=== PATIENT | male | born 1945 | race Caucasian/White ===

== ENCOUNTER 2021-08-07 18:44 | Inpatient (IN) ==
[2021-08-08] MEDS ORDERED: Saline Nasal Spray 44 ML BOTTLE NS PRN (00:25)
[2021-08-08] MEDS ORDERED: MOM Conc 10 ML UD.LIQ PO PRN (00:25)
[2021-08-08] MEDS ORDERED: Melatonin 3 MG TABLET PO PRN (00:25)
[2021-08-08] MEDS ORDERED: NON-FORMULARY MEDICATION 1 EACH EACH (Sildenafil Citrate [Viagra] 100 MG Tablet) PO PRN (00:25)
[2021-08-08] MEDS ORDERED: Benzonatate 100 MG CAPSULE PO PRN (00:25)
[2021-08-08 08:35] LABS: Basophils # 0.1 K/mcL (0.0-0.2); Eosinophils # 0.1 K/mcL (0.0-0.6); Eosinophils % 1.7 %; Hematocrit 37.9 % (37.5-50.1); Hemoglobin 12.2 g/dL (12.9-16.9); Immature Granulocytes % 0.9 % (0-4); Lymphocytes # 1.8 K/mcL (0.6-4.6); Mean Corpuscular HGB Conc 32.2 g/dL (31.6-35.5); Mean Corpuscular Hemoglobin 29.9 pg (28.0-33.3); Mean Corpuscular Volume 92.9 fL (83.0-100.0); Mean Platelet Volume 10.1 fL (9.4-12.4); Monocytes # 0.8 K/mcL (0.0-1.3); Monocytes % 11.9 %; Neutrophils # 4.1 K/mcL (1.6-8.9); Platelet Count 278 K/mcL (140-400); Red Blood Count 4.08 M/mcL (4.19-5.50); Red Cell Distribution Width 13.7 % (11.5-14.5); Segmented Neutrophils % 58.5 %
[2021-08-08 09:06] LABS: BUN/Creatinine Ratio 18 (6-26); Blood Urea Nitrogen 13 mg/dL (8-23); Calcium 8.3 mg/dL (8.6-10.3); Carbon Dioxide 35 mEq/L (23-29); Chloride 95 mEq/L (98-107); Glucose 159 mg/dL (70-105); Osmolality,Calculated 287 (280-300); Potassium 3.8 mEq/L (3.5-5.1); Sodium 137 mEq/L (136-145); eGFR For African Americans > 60 (> 60); eGFR For Non-African Americans > 60 (> 60)
[2021-08-08] MEDS: *HR* Metformin 500 MG TABLET PO SCH ×2 (09:42→16:23)
[2021-08-08] MEDS: GlipiZIDE 5 MG TABLET PO SCH ×2 (09:42→20:20)
[2021-08-08] MEDS: Pyridoxine (B-6) 50 MG TABLET PO SCH (09:43)
[2021-08-08] MEDS: Gabapentin 300 MG CAPSULE PO SCH ×3 (09:43→20:20)
[2021-08-08] MEDS: Metoprolol XL (24 HR) Succ 50 MG TAB.ER.24H PO SCH (09:43)
[2021-08-08] MEDS: Aspirin Enteric Coated 81 MG Tablet PO SCH (09:44)
[2021-08-08] MEDS: Cyanocobalamin (B-12) 1,000 MCG TABLET PO SCH (09:45)
[2021-08-08] MEDS: Carbidopa/Levodopa 25/100 TABLET PO SCH ×2 (09:45→11:58)
[2021-08-08] MEDS: Furosemide 20 MG TABLET PO SCH (09:45)
[2021-08-08] MEDS: Apixaban 5 MG TABLET PO SCH ×2 (09:45→20:20)
[2021-08-08] MEDS: amLODIPine 5 MG TABLET PO SCH (09:46)
[2021-08-08] MEDS: Budesonide/Formoterol 160/4.5 1 PUFF INH IH SCH ×2 (09:49→22:02)
[2021-08-08] MEDS ORDERED: Dextrose Gel 15 GM/37.5 ML TUBE PO PRN ×2 (12:12)
[2021-08-08] MEDS ORDERED: *HR* Dextrose 50 % in Water (Syg) 50 ML SYRINGE IVP PRN (12:12)
[2021-08-08] MEDS ORDERED: D5% in Water 1,000 ML IVC PRN (12:12)
[2021-08-08] MEDS: Insulin LISPRO 300 UNITS/3 ML VIAL SUBQ SCH (16:25)
[2021-08-08] MEDS: Nystatin POWDER 30 GM BOTTLE TP SCH (20:31)
[2021-08-08] MEDS: Artificial Tears SOLN 15 ML BOTTLE BOTH EYES SCH (20:31)
[2021-08-09] MEDS: Insulin LISPRO 300 UNITS/3 ML VIAL SUBQ SCH ×3 (08:17→16:27)
[2021-08-09] MEDS: *HR* Metformin 500 MG TABLET PO SCH ×2 (08:17→17:31)
[2021-08-09] MEDS: Apixaban 5 MG TABLET PO SCH ×2 (08:17→20:30)
[2021-08-09] MEDS: Carbidopa/Levodopa 25/100 TABLET PO SCH ×2 (08:17→12:29)
[2021-08-09] MEDS: Aspirin Enteric Coated 81 MG Tablet PO SCH (08:17)
[2021-08-09] MEDS: amLODIPine 5 MG TABLET PO SCH (08:18)
[2021-08-09] MEDS: Furosemide 20 MG TABLET PO SCH (08:18)
[2021-08-09] MEDS: Pyridoxine (B-6) 50 MG TABLET PO SCH (08:18)
[2021-08-09] MEDS: Cyanocobalamin (B-12) 1,000 MCG TABLET PO SCH (08:18)
[2021-08-09] MEDS: Metoprolol XL (24 HR) Succ 50 MG TAB.ER.24H PO SCH (08:18)
[2021-08-09] MEDS: Nystatin POWDER 30 GM BOTTLE TP SCH ×3 (08:18→20:33)
[2021-08-09] MEDS: GlipiZIDE 5 MG TABLET PO SCH ×2 (08:18→20:30)
[2021-08-09] MEDS: Gabapentin 300 MG CAPSULE PO SCH ×3 (08:18→20:30)
[2021-08-09] MEDS: Budesonide/Formoterol 160/4.5 1 PUFF INH IH SCH ×2 (10:08→21:25)
[2021-08-09] MEDS: Artificial Tears SOLN 15 ML BOTTLE BOTH EYES SCH (20:31)
[2021-08-10] MEDS: Insulin LISPRO 300 UNITS/3 ML VIAL SUBQ SCH ×3 (08:46→16:51)
[2021-08-10] MEDS: Pyridoxine (B-6) 50 MG TABLET PO SCH (08:46)
[2021-08-10] MEDS: Gabapentin 300 MG CAPSULE PO SCH ×3 (08:46→19:54)
[2021-08-10] MEDS: GlipiZIDE 5 MG TABLET PO SCH ×2 (08:46→19:54)
[2021-08-10] MEDS: Aspirin Enteric Coated 81 MG Tablet PO SCH (08:47)
[2021-08-10] MEDS: Metoprolol XL (24 HR) Succ 50 MG TAB.ER.24H PO SCH (08:48)
[2021-08-10] MEDS: Carbidopa/Levodopa 25/100 TABLET PO SCH ×2 (08:48→11:59)
[2021-08-10] MEDS: *HR* Metformin 500 MG TABLET PO SCH ×2 (08:48→16:54)
[2021-08-10] MEDS: Cyanocobalamin (B-12) 1,000 MCG TABLET PO SCH (08:49)
[2021-08-10] MEDS: amLODIPine 5 MG TABLET PO SCH (08:49)
[2021-08-10] MEDS: Furosemide 20 MG TABLET PO SCH (08:49)
[2021-08-10] MEDS: Apixaban 5 MG TABLET PO SCH ×2 (08:49→19:54)
[2021-08-10] MEDS: Nystatin POWDER 30 GM BOTTLE TP SCH ×3 (08:51→19:55)
[2021-08-10] MEDS: Budesonide/Formoterol 160/4.5 1 PUFF INH IH SCH (10:15)
[2021-08-10] MEDS: Artificial Tears SOLN 15 ML BOTTLE BOTH EYES SCH (19:55)
[2021-08-11] MEDS: Budesonide/Formoterol 160/4.5 1 PUFF INH IH SCH ×3 (02:18→21:58)
[2021-08-11] MEDS: Aspirin Enteric Coated 81 MG Tablet PO SCH (08:05)
[2021-08-11] MEDS: Pyridoxine (B-6) 50 MG TABLET PO SCH (08:05)
[2021-08-11] MEDS: GlipiZIDE 5 MG TABLET PO SCH ×2 (08:05→21:17)
[2021-08-11] MEDS: Apixaban 5 MG TABLET PO SCH ×2 (08:05→21:14)
[2021-08-11] MEDS: Metoprolol XL (24 HR) Succ 50 MG TAB.ER.24H PO SCH (08:05)
[2021-08-11] MEDS: amLODIPine 5 MG TABLET PO SCH (08:05)
[2021-08-11] MEDS: Carbidopa/Levodopa 25/100 TABLET PO SCH ×2 (08:06→13:38)
[2021-08-11] MEDS: Cyanocobalamin (B-12) 1,000 MCG TABLET PO SCH (08:06)
[2021-08-11] MEDS: *HR* Metformin 500 MG TABLET PO SCH ×2 (08:06→18:06)
[2021-08-11] MEDS: Gabapentin 300 MG CAPSULE PO SCH ×3 (08:06→21:08)
[2021-08-11] MEDS: Furosemide 20 MG TABLET PO SCH (08:06)
[2021-08-11] MEDS: Insulin LISPRO 300 UNITS/3 ML VIAL SUBQ SCH ×3 (08:07→18:09)
[2021-08-11] MEDS: Nystatin POWDER 30 GM BOTTLE TP SCH ×3 (08:11→21:20)
[2021-08-11] MEDS: Artificial Tears SOLN 15 ML BOTTLE BOTH EYES SCH (21:14)
[2021-08-12] MEDS: Insulin LISPRO 300 UNITS/3 ML VIAL SUBQ SCH ×3 (07:50→16:06)
[2021-08-12] MEDS: Budesonide/Formoterol 160/4.5 1 PUFF INH IH SCH ×2 (08:27→22:00)
[2021-08-12] MEDS: Gabapentin 300 MG CAPSULE PO SCH ×3 (08:46→20:49)
[2021-08-12] MEDS: GlipiZIDE 5 MG TABLET PO SCH ×2 (08:46→20:50)
[2021-08-12] MEDS: Carbidopa/Levodopa 25/100 TABLET PO SCH ×2 (08:46→12:24)
[2021-08-12] MEDS: Metoprolol XL (24 HR) Succ 50 MG TAB.ER.24H PO SCH (08:46)
[2021-08-12] MEDS: Cyanocobalamin (B-12) 1,000 MCG TABLET PO SCH (08:46)
[2021-08-12] MEDS: Pyridoxine (B-6) 50 MG TABLET PO SCH (08:46)
[2021-08-12] MEDS: Furosemide 20 MG TABLET PO SCH (08:47)
[2021-08-12] MEDS: Aspirin Enteric Coated 81 MG Tablet PO SCH (08:47)
[2021-08-12] MEDS: *HR* Metformin 500 MG TABLET PO SCH ×2 (08:47→16:21)
[2021-08-12] MEDS: amLODIPine 5 MG TABLET PO SCH (08:47)
[2021-08-12] MEDS: Apixaban 5 MG TABLET PO SCH ×2 (08:47→20:49)
[2021-08-12] MEDS: Nystatin POWDER 30 GM BOTTLE TP SCH ×3 (08:48→22:41)
[2021-08-12] MEDS: Artificial Tears SOLN 15 ML BOTTLE BOTH EYES SCH (20:50)
[2021-08-13] MEDS: *HR* Metformin 500 MG TABLET PO SCH ×2 (08:42→17:17)
[2021-08-13] MEDS: Metoprolol XL (24 HR) Succ 50 MG TAB.ER.24H PO SCH (08:42)
[2021-08-13] MEDS: Carbidopa/Levodopa 25/100 TABLET PO SCH ×2 (08:42→14:25)
[2021-08-13] MEDS: Aspirin Enteric Coated 81 MG Tablet PO SCH (08:42)
[2021-08-13] MEDS: Apixaban 5 MG TABLET PO SCH ×2 (08:42→20:36)
[2021-08-13] MEDS: GlipiZIDE 5 MG TABLET PO SCH ×2 (08:43→20:36)
[2021-08-13] MEDS: Furosemide 20 MG TABLET PO SCH (08:44)
[2021-08-13] MEDS: Cyanocobalamin (B-12) 1,000 MCG TABLET PO SCH (08:44)
[2021-08-13] MEDS: Gabapentin 300 MG CAPSULE PO SCH ×3 (08:44→20:36)
[2021-08-13] MEDS: Pyridoxine (B-6) 50 MG TABLET PO SCH (08:44)
[2021-08-13] MEDS: amLODIPine 5 MG TABLET PO SCH (08:44)
[2021-08-13] MEDS: Insulin LISPRO 300 UNITS/3 ML VIAL SUBQ SCH ×3 (08:45→17:17)
[2021-08-13] MEDS: Nystatin POWDER 30 GM BOTTLE TP SCH ×3 (08:45→20:37)
[2021-08-13] MEDS: Budesonide/Formoterol 160/4.5 1 PUFF INH IH SCH ×2 (11:08→21:25)
[2021-08-13] MEDS: Artificial Tears SOLN 15 ML BOTTLE BOTH EYES SCH (20:37)
[2021-08-14 07:50] LABS: Basophils # 0.1 K/mcL (0.0-0.2); Eosinophils # 0.2 K/mcL (0.0-0.6); Eosinophils % 2.8 %; Hematocrit 37.4 % (37.5-50.1); Hemoglobin 12.1 g/dL (12.9-16.9); Immature Granulocytes % 0.7 % (0-4); Lymphocytes # 1.8 K/mcL (0.6-4.6); Lymphocytes % 29.2 %; Mean Corpuscular HGB Conc 32.4 g/dL (31.6-35.5); Mean Corpuscular Hemoglobin 30.3 pg (28.0-33.3); Mean Corpuscular Volume 93.7 fL (83.0-100.0); Mean Platelet Volume 9.8 fL (9.4-12.4); Monocytes # 0.6 K/mcL (0.0-1.3); Monocytes % 10.5 %; Neutrophils # 3.4 K/mcL (1.6-8.9); Platelet Count 186 K/mcL (140-400); Red Blood Count 3.99 M/mcL (4.19-5.50); Segmented Neutrophils % 55.8 %; White Blood Count 6.1 K/mcL (4.3-11.1)
[2021-08-14 08:06] LABS: BUN/Creatinine Ratio 18 (6-26); Blood Urea Nitrogen 13 mg/dL (8-23); Calcium 8.1 mg/dL (8.6-10.3); Carbon Dioxide 32 mEq/L (23-29); Chloride 100 mEq/L (98-107); Glucose 145 mg/dL (70-105); Osmolality,Calculated 291 (280-300); Potassium 4.1 mEq/L (3.5-5.1); Sodium 139 mEq/L (136-145); eGFR For African Americans > 60 (> 60); eGFR For Non-African Americans > 60 (> 60)
[2021-08-14] MEDS: GlipiZIDE 5 MG TABLET PO SCH ×2 (09:05→20:24)
[2021-08-14] MEDS: Apixaban 5 MG TABLET PO SCH ×2 (09:05→20:24)
[2021-08-14] MEDS: Furosemide 20 MG TABLET PO SCH (09:05)
[2021-08-14] MEDS: amLODIPine 5 MG TABLET PO SCH (09:05)
[2021-08-14] MEDS: Aspirin Enteric Coated 81 MG Tablet PO SCH (09:06)
[2021-08-14] MEDS: Cyanocobalamin (B-12) 1,000 MCG TABLET PO SCH (09:06)
[2021-08-14] MEDS: Carbidopa/Levodopa 25/100 TABLET PO SCH ×2 (09:06→12:29)
[2021-08-14] MEDS: Metoprolol XL (24 HR) Succ 50 MG TAB.ER.24H PO SCH (09:06)
[2021-08-14] MEDS: Pyridoxine (B-6) 50 MG TABLET PO SCH (09:06)
[2021-08-14] MEDS: Gabapentin 300 MG CAPSULE PO SCH ×3 (09:06→20:24)
[2021-08-14] MEDS: *HR* Metformin 500 MG TABLET PO SCH ×2 (09:06→17:01)
[2021-08-14] MEDS: Insulin LISPRO 300 UNITS/3 ML VIAL SUBQ SCH ×3 (09:13→17:01)
[2021-08-14] MEDS: Nystatin POWDER 30 GM BOTTLE TP SCH ×3 (09:49→20:24)
[2021-08-14] MEDS: Budesonide/Formoterol 160/4.5 1 PUFF INH IH SCH ×2 (11:06→22:31)
[2021-08-14] MEDS: Artificial Tears SOLN 15 ML BOTTLE BOTH EYES SCH (20:24)
[2021-08-15] MEDS: Gabapentin 300 MG CAPSULE PO SCH ×3 (07:54→21:54)
[2021-08-15] MEDS: Apixaban 5 MG TABLET PO SCH ×2 (07:54→21:55)
[2021-08-15] MEDS: *HR* Metformin 500 MG TABLET PO SCH ×2 (07:54→16:07)
[2021-08-15] MEDS: GlipiZIDE 5 MG TABLET PO SCH ×2 (07:54→21:55)
[2021-08-15] MEDS: Pyridoxine (B-6) 50 MG TABLET PO SCH (07:55)
[2021-08-15] MEDS: Furosemide 20 MG TABLET PO SCH (07:55)
[2021-08-15] MEDS: Carbidopa/Levodopa 25/100 TABLET PO SCH ×2 (07:55→11:59)
[2021-08-15] MEDS: Cyanocobalamin (B-12) 1,000 MCG TABLET PO SCH (07:55)
[2021-08-15] MEDS: Aspirin Enteric Coated 81 MG Tablet PO SCH (07:55)
[2021-08-15] MEDS: amLODIPine 5 MG TABLET PO SCH (07:55)
[2021-08-15] MEDS: Insulin LISPRO 300 UNITS/3 ML VIAL SUBQ SCH ×3 (08:20→16:50)
[2021-08-15] MEDS: Nystatin POWDER 30 GM BOTTLE TP SCH ×3 (08:23→21:56)
[2021-08-15] MEDS: Metoprolol XL (24 HR) Succ 50 MG TAB.ER.24H PO SCH (08:23)
[2021-08-15] MEDS: Budesonide/Formoterol 160/4.5 1 PUFF INH IH SCH (10:46)
[2021-08-15 15:56] LABS: Bilirubin,Urine Negative (Negative); Blood,Urine Negative (Negative); Clarity,Urine Clear (Clear); Color,Urine Yellow (Yellow); Glucose,Urine (UA) Normal (Normal); Ketones,Urine Negative (Negative); Leukocyte Esterase,Urine Negative (Negative); Nitrite,Urine Negative (Negative); PH,Urine 6.5 pH Units (5.0-8.0); Protein,Urine Negative (Neg-Trace); Urobilinogen,Urine Normal (Normal)
[2021-08-15] MEDS: Artificial Tears SOLN 15 ML BOTTLE BOTH EYES SCH (21:57)
[2021-08-16] MEDS: Budesonide/Formoterol 160/4.5 1 PUFF INH IH SCH ×3 (00:07→21:59)
[2021-08-16] MEDS: Insulin LISPRO 300 UNITS/3 ML VIAL SUBQ SCH ×3 (09:30→16:28)
[2021-08-16] MEDS: Cyanocobalamin (B-12) 1,000 MCG TABLET PO SCH (09:43)
[2021-08-16] MEDS: amLODIPine 5 MG TABLET PO SCH (09:44)
[2021-08-16] MEDS: Pyridoxine (B-6) 50 MG TABLET PO SCH (09:45)
[2021-08-16] MEDS: Furosemide 20 MG TABLET PO SCH (09:45)
[2021-08-16] MEDS: Gabapentin 300 MG CAPSULE PO SCH ×3 (09:45→20:32)
[2021-08-16] MEDS: Apixaban 5 MG TABLET PO SCH ×2 (09:45→20:32)
[2021-08-16] MEDS: Metoprolol XL (24 HR) Succ 50 MG TAB.ER.24H PO SCH (09:45)
[2021-08-16] MEDS: Aspirin Enteric Coated 81 MG Tablet PO SCH (09:45)
[2021-08-16] MEDS: *HR* Metformin 500 MG TABLET PO SCH ×2 (09:45→17:04)
[2021-08-16] MEDS: GlipiZIDE 5 MG TABLET PO SCH ×2 (09:46→20:32)
[2021-08-16] MEDS: Carbidopa/Levodopa 25/100 TABLET PO SCH ×2 (09:46→12:04)
[2021-08-16] MEDS: Nystatin POWDER 30 GM BOTTLE TP SCH ×3 (09:47→20:32)
[2021-08-16] MEDS: Artificial Tears SOLN 15 ML BOTTLE BOTH EYES SCH (20:32)
[2021-08-17] MEDS: Budesonide/Formoterol 160/4.5 1 PUFF INH IH SCH ×2 (07:50→22:34)
[2021-08-17] MEDS: amLODIPine 5 MG TABLET PO SCH (08:57)
[2021-08-17] MEDS: Carbidopa/Levodopa 25/100 TABLET PO SCH ×2 (08:57→12:17)
[2021-08-17] MEDS: Pyridoxine (B-6) 50 MG TABLET PO SCH (08:57)
[2021-08-17] MEDS: Aspirin Enteric Coated 81 MG Tablet PO SCH (08:57)
[2021-08-17] MEDS: *HR* Metformin 500 MG TABLET PO SCH ×2 (08:57→16:15)
[2021-08-17] MEDS: Metoprolol XL (24 HR) Succ 50 MG TAB.ER.24H PO SCH (08:58)
[2021-08-17] MEDS: Furosemide 20 MG TABLET PO SCH (08:58)
[2021-08-17] MEDS: Apixaban 5 MG TABLET PO SCH ×2 (08:58→21:36)
[2021-08-17] MEDS: GlipiZIDE 5 MG TABLET PO SCH ×2 (08:58→21:36)
[2021-08-17] MEDS: Cyanocobalamin (B-12) 1,000 MCG TABLET PO SCH (08:58)
[2021-08-17] MEDS: Gabapentin 300 MG CAPSULE PO SCH ×3 (08:58→21:36)
[2021-08-17] MEDS: Insulin LISPRO 300 UNITS/3 ML VIAL SUBQ SCH ×3 (08:59→16:29)
[2021-08-17] MEDS: Nystatin POWDER 30 GM BOTTLE TP SCH ×3 (09:01→21:36)
[2021-08-17] MEDS: Artificial Tears SOLN 15 ML BOTTLE BOTH EYES SCH (21:34)
[2021-08-18] MEDS: Budesonide/Formoterol 160/4.5 1 PUFF INH IH SCH ×2 (08:15→21:48)
[2021-08-18 08:30] LABS: Basophils # 0.1 K/mcL (0.0-0.2); Basophils % 0.6 %; Eosinophils # 0.2 K/mcL (0.0-0.6); Eosinophils % 2.4 %; Hematocrit 39.7 % (37.5-50.1); Hemoglobin 12.6 g/dL (12.9-16.9); Immature Granulocytes % 0.4 % (0-4); Lymphocytes # 2.5 K/mcL (0.6-4.6); Lymphocytes % 32.2 %; Mean Corpuscular HGB Conc 31.7 g/dL (31.6-35.5); Mean Corpuscular Volume 94.5 fL (83.0-100.0); Mean Platelet Volume 9.6 fL (9.4-12.4); Monocytes # 0.8 K/mcL (0.0-1.3); Neutrophils # 4.3 K/mcL (1.6-8.9); Platelet Count 173 K/mcL (140-400); Red Cell Distribution Width 14.1 % (11.5-14.5); Segmented Neutrophils % 54.4 %; White Blood Count 7.8 K/mcL (4.3-11.1)
[2021-08-18 08:45] LABS: BUN/Creatinine Ratio 20 (6-26); Blood Urea Nitrogen 15 mg/dL (8-23); Calcium 8.5 mg/dL (8.6-10.3); Carbon Dioxide 32 mEq/L (23-29); Chloride 100 mEq/L (98-107); Glucose 125 mg/dL (70-105); Osmolality,Calculated 290 (280-300); Potassium 4.3 mEq/L (3.5-5.1); Sodium 139 mEq/L (136-145); eGFR For African Americans > 60 (> 60); eGFR For Non-African Americans > 60 (> 60)
[2021-08-18] MEDS: Metoprolol XL (24 HR) Succ 50 MG TAB.ER.24H PO SCH (10:00)
[2021-08-18] MEDS: Pyridoxine (B-6) 50 MG TABLET PO SCH (10:00)
[2021-08-18] MEDS: Insulin LISPRO 300 UNITS/3 ML VIAL SUBQ SCH ×3 (10:00→16:31)
[2021-08-18] MEDS: Aspirin Enteric Coated 81 MG Tablet PO SCH (10:00)
[2021-08-18] MEDS: Cyanocobalamin (B-12) 1,000 MCG TABLET PO SCH (10:00)
[2021-08-18] MEDS: *HR* Metformin 500 MG TABLET PO SCH ×2 (10:00→16:37)
[2021-08-18] MEDS: amLODIPine 5 MG TABLET PO SCH (10:01)
[2021-08-18] MEDS: GlipiZIDE 5 MG TABLET PO SCH ×2 (10:01→20:57)
[2021-08-18] MEDS: Gabapentin 300 MG CAPSULE PO SCH ×3 (10:01→20:57)
[2021-08-18] MEDS: Furosemide 20 MG TABLET PO SCH (10:01)
[2021-08-18] MEDS: Apixaban 5 MG TABLET PO SCH ×2 (10:01→20:57)
[2021-08-18] MEDS: Carbidopa/Levodopa 25/100 TABLET PO SCH ×2 (10:01→12:07)
[2021-08-18] MEDS: Nystatin POWDER 30 GM BOTTLE TP SCH ×3 (10:09→20:57)
[2021-08-18] MEDS: Artificial Tears SOLN 15 ML BOTTLE BOTH EYES SCH (20:57)
[2021-08-19] MEDS: Insulin LISPRO 300 UNITS/3 ML VIAL SUBQ SCH ×3 (09:28→16:17)
[2021-08-19] MEDS: Carbidopa/Levodopa 25/100 TABLET PO SCH ×2 (09:45→14:07)
[2021-08-19] MEDS: Apixaban 5 MG TABLET PO SCH ×2 (09:45→19:44)
[2021-08-19] MEDS: Gabapentin 300 MG CAPSULE PO SCH ×3 (09:45→19:44)
[2021-08-19] MEDS: Cyanocobalamin (B-12) 1,000 MCG TABLET PO SCH (09:45)
[2021-08-19] MEDS: GlipiZIDE 5 MG TABLET PO SCH ×2 (09:45→19:44)
[2021-08-19] MEDS: Furosemide 20 MG TABLET PO SCH (09:45)
[2021-08-19] MEDS: Aspirin Enteric Coated 81 MG Tablet PO SCH (09:45)
[2021-08-19] MEDS: Metoprolol XL (24 HR) Succ 50 MG TAB.ER.24H PO SCH (09:45)
[2021-08-19] MEDS: *HR* Metformin 500 MG TABLET PO SCH ×2 (09:45→16:31)
[2021-08-19] MEDS: Pyridoxine (B-6) 50 MG TABLET PO SCH (09:46)
[2021-08-19] MEDS: Nystatin POWDER 30 GM BOTTLE TP SCH ×3 (09:46→19:45)
[2021-08-19] MEDS: amLODIPine 5 MG TABLET PO SCH (09:46)
[2021-08-19] MEDS: Budesonide/Formoterol 160/4.5 1 PUFF INH IH SCH ×2 (10:02→21:48)
[2021-08-19] MEDS: Artificial Tears SOLN 15 ML BOTTLE BOTH EYES SCH (19:45)
[2021-08-20] MEDS: Insulin LISPRO 300 UNITS/3 ML VIAL SUBQ SCH ×3 (07:25→16:15)
[2021-08-20] MEDS: Gabapentin 300 MG CAPSULE PO SCH ×3 (09:16→19:53)
[2021-08-20] MEDS: Apixaban 5 MG TABLET PO SCH ×2 (09:16→19:53)
[2021-08-20] MEDS: GlipiZIDE 5 MG TABLET PO SCH ×2 (09:16→19:58)
[2021-08-20] MEDS: Aspirin Enteric Coated 81 MG Tablet PO SCH (09:16)
[2021-08-20] MEDS: Pyridoxine (B-6) 50 MG TABLET PO SCH (09:17)
[2021-08-20] MEDS: Cyanocobalamin (B-12) 1,000 MCG TABLET PO SCH (09:17)
[2021-08-20] MEDS: *HR* Metformin 500 MG TABLET PO SCH ×2 (09:17→16:27)
[2021-08-20] MEDS: Carbidopa/Levodopa 25/100 TABLET PO SCH ×2 (09:17→12:35)
[2021-08-20] MEDS: amLODIPine 5 MG TABLET PO SCH (09:17)
[2021-08-20] MEDS: Furosemide 20 MG TABLET PO SCH (09:17)
[2021-08-20] MEDS: Metoprolol XL (24 HR) Succ 50 MG TAB.ER.24H PO SCH (09:17)
[2021-08-20] MEDS: Nystatin POWDER 30 GM BOTTLE TP SCH ×3 (09:18→20:03)
[2021-08-20] MEDS: Budesonide/Formoterol 160/4.5 1 PUFF INH IH SCH ×2 (10:51→22:22)
[2021-08-20] MEDS: Artificial Tears SOLN 15 ML BOTTLE BOTH EYES SCH (20:03)
[2021-08-21] MEDS: Pyridoxine (B-6) 50 MG TABLET PO SCH (07:56)
[2021-08-21] MEDS: Carbidopa/Levodopa 25/100 TABLET PO SCH ×2 (07:56→12:44)
[2021-08-21] MEDS: *HR* Metformin 500 MG TABLET PO SCH ×2 (07:56→17:43)
[2021-08-21] MEDS: Gabapentin 300 MG CAPSULE PO SCH ×3 (07:56→19:58)
[2021-08-21] MEDS: Aspirin Enteric Coated 81 MG Tablet PO SCH (07:56)
[2021-08-21] MEDS: Cyanocobalamin (B-12) 1,000 MCG TABLET PO SCH (07:56)
[2021-08-21] MEDS: Apixaban 5 MG TABLET PO SCH ×2 (07:56→19:59)
[2021-08-21] MEDS: Metoprolol XL (24 HR) Succ 50 MG TAB.ER.24H PO SCH (07:56)
[2021-08-21] MEDS: amLODIPine 5 MG TABLET PO SCH (07:56)
[2021-08-21] MEDS: Insulin LISPRO 300 UNITS/3 ML VIAL SUBQ SCH ×3 (07:57→17:43)
[2021-08-21] MEDS: Nystatin POWDER 30 GM BOTTLE TP SCH ×3 (07:58→19:59)
[2021-08-21] MEDS: Budesonide/Formoterol 160/4.5 1 PUFF INH IH SCH ×2 (09:01→21:31)
[2021-08-21] MEDS: Furosemide 20 MG TABLET PO SCH (09:37)
[2021-08-21] MEDS: GlipiZIDE 5 MG TABLET PO SCH ×2 (09:37→19:59)
[2021-08-21] MEDS: Artificial Tears SOLN 15 ML BOTTLE BOTH EYES SCH (19:59)
[2021-08-22] MEDS: Insulin LISPRO 300 UNITS/3 ML VIAL SUBQ SCH ×3 (07:54→16:36)
[2021-08-22] MEDS: *HR* Metformin 500 MG TABLET PO SCH ×2 (07:54→16:36)
[2021-08-22] MEDS: Carbidopa/Levodopa 25/100 TABLET PO SCH ×2 (07:54→11:58)
[2021-08-22] MEDS: Nystatin POWDER 30 GM BOTTLE TP SCH ×3 (07:56→20:09)
[2021-08-22] MEDS: Gabapentin 300 MG CAPSULE PO SCH ×3 (09:20→20:09)
[2021-08-22] MEDS: Furosemide 20 MG TABLET PO SCH (09:20)
[2021-08-22] MEDS: Pyridoxine (B-6) 50 MG TABLET PO SCH (09:20)
[2021-08-22] MEDS: amLODIPine 5 MG TABLET PO SCH (09:20)
[2021-08-22] MEDS: Apixaban 5 MG TABLET PO SCH ×2 (09:21→20:08)
[2021-08-22] MEDS: GlipiZIDE 5 MG TABLET PO SCH ×2 (09:21→20:28)
[2021-08-22] MEDS: Metoprolol XL (24 HR) Succ 50 MG TAB.ER.24H PO SCH (09:21)
[2021-08-22] MEDS: Cyanocobalamin (B-12) 1,000 MCG TABLET PO SCH (09:21)
[2021-08-22] MEDS: Aspirin Enteric Coated 81 MG Tablet PO SCH (09:21)
[2021-08-22] MEDS: Budesonide/Formoterol 160/4.5 1 PUFF INH IH SCH ×2 (09:24→22:12)
[2021-08-22] MEDS: Artificial Tears SOLN 15 ML BOTTLE BOTH EYES SCH (20:10)
[2021-08-23] MEDS: Insulin LISPRO 300 UNITS/3 ML VIAL SUBQ SCH ×3 (08:33→17:35)
[2021-08-23] MEDS: Metoprolol XL (24 HR) Succ 50 MG TAB.ER.24H PO SCH (09:42)
[2021-08-23] MEDS: *HR* Metformin 500 MG TABLET PO SCH ×2 (09:42→17:30)
[2021-08-23] MEDS: amLODIPine 5 MG TABLET PO SCH (09:42)
[2021-08-23] MEDS: Pyridoxine (B-6) 50 MG TABLET PO SCH (09:42)
[2021-08-23] MEDS: Cyanocobalamin (B-12) 1,000 MCG TABLET PO SCH (09:42)
[2021-08-23] MEDS: Gabapentin 300 MG CAPSULE PO SCH ×3 (09:42→19:34)
[2021-08-23] MEDS: Apixaban 5 MG TABLET PO SCH ×2 (09:42→19:33)
[2021-08-23] MEDS: Aspirin Enteric Coated 81 MG Tablet PO SCH (09:42)
[2021-08-23] MEDS: Nystatin POWDER 30 GM BOTTLE TP SCH ×3 (09:43→19:35)
[2021-08-23] MEDS: Carbidopa/Levodopa 25/100 TABLET PO SCH ×2 (09:43→12:14)
[2021-08-23] MEDS: GlipiZIDE 5 MG TABLET PO SCH ×2 (10:52→20:44)
[2021-08-23] MEDS: Furosemide 20 MG TABLET PO SCH (10:52)
[2021-08-23] MEDS: Budesonide/Formoterol 160/4.5 1 PUFF INH IH SCH ×2 (11:04→20:31)
[2021-08-23] MEDS: Artificial Tears SOLN 15 ML BOTTLE BOTH EYES SCH (19:33)
[2021-08-24] MEDS: Aspirin Enteric Coated 81 MG Tablet PO SCH (09:26)
[2021-08-24] MEDS: Insulin LISPRO 300 UNITS/3 ML VIAL SUBQ SCH ×3 (09:26→16:13)
[2021-08-24] MEDS: amLODIPine 5 MG TABLET PO SCH (09:26)
[2021-08-24] MEDS: Carbidopa/Levodopa 25/100 TABLET PO SCH ×2 (09:27→12:02)
[2021-08-24] MEDS: *HR* Metformin 500 MG TABLET PO SCH ×2 (09:27→16:13)
[2021-08-24] MEDS: Gabapentin 300 MG CAPSULE PO SCH ×3 (09:27→21:13)
[2021-08-24] MEDS: Metoprolol XL (24 HR) Succ 50 MG TAB.ER.24H PO SCH (09:27)
[2021-08-24] MEDS: Apixaban 5 MG TABLET PO SCH ×2 (09:27→21:12)
[2021-08-24] MEDS: Pyridoxine (B-6) 50 MG TABLET PO SCH (09:27)
[2021-08-24] MEDS: Cyanocobalamin (B-12) 1,000 MCG TABLET PO SCH (09:27)
[2021-08-24] MEDS: Budesonide/Formoterol 160/4.5 1 PUFF INH IH SCH ×2 (09:41→19:48)
[2021-08-24] MEDS: GlipiZIDE 5 MG TABLET PO SCH ×2 (10:20→21:12)
[2021-08-24] MEDS: Nystatin POWDER 30 GM BOTTLE TP SCH ×3 (10:21→21:13)
[2021-08-24] MEDS: Furosemide 20 MG TABLET PO SCH (10:23)
[2021-08-24] MEDS: Artificial Tears SOLN 15 ML BOTTLE BOTH EYES SCH (21:12)
[2021-08-25] MEDS: Insulin LISPRO 300 UNITS/3 ML VIAL SUBQ SCH ×3 (08:27→16:05)
[2021-08-25] MEDS: Pyridoxine (B-6) 50 MG TABLET PO SCH (08:31)
[2021-08-25] MEDS: amLODIPine 5 MG TABLET PO SCH (08:31)
[2021-08-25] MEDS: Gabapentin 300 MG CAPSULE PO SCH ×3 (08:31→20:17)
[2021-08-25] MEDS: Aspirin Enteric Coated 81 MG Tablet PO SCH (08:31)
[2021-08-25] MEDS: Metoprolol XL (24 HR) Succ 50 MG TAB.ER.24H PO SCH (08:31)
[2021-08-25] MEDS: Furosemide 20 MG TABLET PO SCH (08:32)
[2021-08-25] MEDS: Apixaban 5 MG TABLET PO SCH ×2 (08:32→20:17)
[2021-08-25] MEDS: *HR* Metformin 500 MG TABLET PO SCH ×2 (08:32→16:05)
[2021-08-25] MEDS: Carbidopa/Levodopa 25/100 TABLET PO SCH ×2 (08:32→11:34)
[2021-08-25] MEDS: Nystatin POWDER 30 GM BOTTLE TP SCH ×3 (08:32→20:18)
[2021-08-25] MEDS: Cyanocobalamin (B-12) 1,000 MCG TABLET PO SCH (08:32)
[2021-08-25] MEDS: GlipiZIDE 5 MG TABLET PO SCH ×2 (08:35→20:17)
[2021-08-25] MEDS: Budesonide/Formoterol 160/4.5 1 PUFF INH IH SCH ×2 (11:00→21:59)
[2021-08-25] MEDS: Artificial Tears SOLN 15 ML BOTTLE BOTH EYES SCH (20:17)
[2021-08-26] MEDS: Insulin LISPRO 300 UNITS/3 ML VIAL SUBQ SCH ×3 (08:32→15:48)
[2021-08-26] MEDS: Budesonide/Formoterol 160/4.5 1 PUFF INH IH SCH ×2 (08:58→21:03)
[2021-08-26] MEDS: Cyanocobalamin (B-12) 1,000 MCG TABLET PO SCH (09:54)
[2021-08-26] MEDS: *HR* Metformin 500 MG TABLET PO SCH ×2 (09:54→15:49)
[2021-08-26] MEDS: GlipiZIDE 5 MG TABLET PO SCH ×2 (09:54→20:07)
[2021-08-26] MEDS: Aspirin Enteric Coated 81 MG Tablet PO SCH (09:55)
[2021-08-26] MEDS: Furosemide 20 MG TABLET PO SCH (09:55)
[2021-08-26] MEDS: Gabapentin 300 MG CAPSULE PO SCH ×3 (09:55→20:07)
[2021-08-26] MEDS: Nystatin POWDER 30 GM BOTTLE TP SCH ×3 (09:55→20:07)
[2021-08-26] MEDS: Metoprolol XL (24 HR) Succ 50 MG TAB.ER.24H PO SCH (09:55)
[2021-08-26] MEDS: Carbidopa/Levodopa 25/100 TABLET PO SCH ×2 (09:55→12:06)
[2021-08-26] MEDS: amLODIPine 5 MG TABLET PO SCH (09:55)
[2021-08-26] MEDS: Pyridoxine (B-6) 50 MG TABLET PO SCH (09:55)
[2021-08-26] MEDS: Apixaban 5 MG TABLET PO SCH ×2 (09:55→20:07)
[2021-08-26] MEDS: Artificial Tears SOLN 15 ML BOTTLE BOTH EYES SCH (20:07)
[2021-08-27] MEDS: Insulin LISPRO 300 UNITS/3 ML VIAL SUBQ SCH ×3 (07:16→16:04)
[2021-08-27] MEDS: Budesonide/Formoterol 160/4.5 1 PUFF INH IH SCH ×2 (08:00→22:15)
[2021-08-27] MEDS: Cyanocobalamin (B-12) 1,000 MCG TABLET PO SCH (08:26)
[2021-08-27] MEDS: *HR* Metformin 500 MG TABLET PO SCH ×2 (08:26→15:09)
[2021-08-27] MEDS: Furosemide 20 MG TABLET PO SCH (08:26)
[2021-08-27] MEDS: Gabapentin 300 MG CAPSULE PO SCH ×3 (08:26→20:22)
[2021-08-27] MEDS: Aspirin Enteric Coated 81 MG Tablet PO SCH (08:26)
[2021-08-27] MEDS: amLODIPine 5 MG TABLET PO SCH (08:26)
[2021-08-27] MEDS: Metoprolol XL (24 HR) Succ 50 MG TAB.ER.24H PO SCH (08:26)
[2021-08-27] MEDS: Carbidopa/Levodopa 25/100 TABLET PO SCH ×2 (08:27→11:40)
[2021-08-27] MEDS: Apixaban 5 MG TABLET PO SCH ×2 (08:27→20:22)
[2021-08-27] MEDS: Pyridoxine (B-6) 50 MG TABLET PO SCH (08:27)
[2021-08-27] MEDS: Nystatin POWDER 30 GM BOTTLE TP SCH ×3 (08:27→20:22)
[2021-08-27] MEDS: GlipiZIDE 5 MG TABLET PO SCH ×2 (08:27→20:22)
[2021-08-27] MEDS: Artificial Tears SOLN 15 ML BOTTLE BOTH EYES SCH (20:22)
[2021-08-28 08:26] VITALS: BP 114/58; PULSE 68; TEMP 97.4
[2021-08-28] MEDS: Furosemide 20 MG TABLET PO SCH (08:36)
[2021-08-28] MEDS: GlipiZIDE 5 MG TABLET PO SCH (08:37)
[2021-08-28] MEDS: Aspirin Enteric Coated 81 MG Tablet PO SCH (08:37)
[2021-08-28] MEDS: Cyanocobalamin (B-12) 1,000 MCG TABLET PO SCH (08:37)
[2021-08-28] MEDS: Pyridoxine (B-6) 50 MG TABLET PO SCH ×2 (08:37→08:39)
[2021-08-28] MEDS: Apixaban 5 MG TABLET PO SCH (08:38)
[2021-08-28] MEDS: Gabapentin 300 MG CAPSULE PO SCH (08:38)
[2021-08-28] MEDS: Metoprolol XL (24 HR) Succ 50 MG TAB.ER.24H PO SCH (08:38)
[2021-08-28] MEDS: *HR* Metformin 500 MG TABLET PO SCH (08:39)
[2021-08-28] MEDS: Carbidopa/Levodopa 25/100 TABLET PO SCH ×2 (08:39→11:08)
[2021-08-28] MEDS: amLODIPine 5 MG TABLET PO SCH (08:39)
[2021-08-28] MEDS: Nystatin POWDER 30 GM BOTTLE TP SCH (09:08)
[2021-08-28] MEDS: Insulin LISPRO 300 UNITS/3 ML VIAL SUBQ SCH ×2 (09:08→11:08)
[2021-08-28] MEDS: Budesonide/Formoterol 160/4.5 1 PUFF INH IH SCH (09:51)
[2021-08-28 12:05] VITALS: RESP 16; O2SAT 96
== END 2021-08-28 12:30 | disposition home health service (06) | DRG 189 ==
LOC: INPPIK 22:58
PROVIDERS: ADMIT Family Medicine; ATTEND Family Medicine